=== PATIENT | male | born 1995 | race Caucasian/White ===

== ENCOUNTER 2018-09-11 23:19 | Emergency (ER) | END 2018-09-12 01:34 | disposition home or self-care (01) ==

== ENCOUNTER 2019-02-23 14:36 | Emergency (ER) | payer SELFPAY ==
[~2019-02-23] VITALS: Ht 170.2 cm; Wt 94.8 kg
[~2019-02-23 14:36] MED LIST: IBUP-1542 PO; MUPI22OI2 TOP; NAPR-985 PO; NPH10OT LEFT EAR
[2019-02-23 14:45] VITALS: BP 151/74; PULSE 89; RESP 18; Ht 170.2 cm; Wt 94.8 kg
--- NOTE | 2019-02-23 16:31 | ERD ---
ER Documentation Chief Complaint Chief Complaint right great toe ingrown nail HPI 23-year-old male, previously healthy, presents the emergency department, complaining of right great toenail erythema and tenderness over the medial aspect for 1 week. The patient denies fever, no chills, no history of previous surgeries. ROS All systems reviewed and are negative except as per history of present illness. Medications Home Meds Active Scripts Ibuprofen* (Motrin*) 400 Mg Tab, 400 MG PO Q6H PRN for PAIN AND OR ELEVATED TEMP, #20 TAB Prov:VENITA SIMMONS MD 02/23/19 Cephalexin* (Keflex*) 500 Mg Capsule, 500 MG PO BID for 7 Days, CAP Prov:VENITA SIMMONS MD 02/23/19 Sulfamethoxazole/Trimethoprim* (Bactrim Ds* Tablet) 1 Each Tablet, 1 TAB PO BID, #14 TAB Prov:VENITA SIMMONS MD 02/23/19 Naproxen* (Naprosyn*) 500 Mg Tablet, 500 MG PO BID PRN for PAIN AND/OR INFLAMMATION, #30 TAB Prov:OLIVA SAHNI PA-C 09/12/18 Mupirocin* (Bactroban*) 2% -22 Gram Oint...g., 1 APPLIC TOP BID for 7 Days, EA Prov:OLIVA SAHNI PA-C 09/12/18 Neomycin/Polymyxin/Hydrocort* (Cortisporin* Otic) 10 Ml Susp, 4 DROP LEFT EAR QID for 7 Days, EA Prov:DINESH LOPES MD 10/22/16 Ibuprofen* (Motrin*) 600 Mg Tab, 600 MG PO Q6, #15 TAB Prov:DINESH LOPES MD 10/22/16 Allergies Allergies: Coded Allergies: No Known Allergy (Unverified , 09/11/18) PMhx/Soc Medical and Surgical Hx: pt denies Medical Hx, pt denies Surgical Hx Hx Alcohol Use: Yes (weekly) Hx Substance Use: No Hx Tobacco Use: Yes (2 CIGS/WEEK) Smoking Status: Never smoker FmHx Family History: diabetes (Mother); No coronary disease Physical Exam Vitals Vital Signs Date Temp Pulse Resp B/P (MAP) Pulse Ox O2 O2 Flow FiO2 Time Delivery Rate 02/23/19 98.1 89 18 151/74 100 14:45 (99) Physical Exam Const: No acute distress Head: Atraumatic Eyes: Normal Conjunctiva ENT: Normal External Ears, Nose and Mouth. Neck: Full range of motion. No meningismus. Resp: Clear to auscultation bilaterally Cardio: Regular rate and rhythm, no murmurs Abd: Soft, non tender, non distended. Normal bowel sounds Skin: No petechiae or rashes Back: No midline or flank tenderness Ext: Right ingrown toenail: Tenderness and erythema over the medial fold, distal neurovascular exam intact, no cyanosis, or edema Neur: Awake and alert Psych: Normal Mood and Affect Procedures/MDM Differential diagnoses include paronychia, cellulitis, diabetic ulcer, osteomyelitis. Low suspicion for acute or chronic systemic process. Clinical presentation consistent most likely with right ingrown toenail, treatment options and alternatives were discussed with the patient who decided to go for conservative management with antibiotics p.o. and follow-up with his primary doctor. Some side effects of prescribed medications (headache, rash, nausea, vomiting, diarrhea, drowsiness, habituation, bleeding, hypertension, interactions with other medications) were reviewed. If the symptoms get worse return to the Emergency Department immediately. Instructions explained and given directly by me to the patient with acknowledgment and demonstrated understanding. Disclaimer: Inadvertent spelling and grammatical errors are likely due to EHR/dictation software use and do not reflect on the overall quality of patient care. Also, please note that the electronic time recorded on this note does not necessarily reflect the actual time of the patient encounter. Departure Diagnosis: Primary Impression: Ingrowing nail, right great toe Condition: Stable Additional Instructions: Thank you very much for allowing us to participate in your care. Your health and safety is our top priority at [facility]. The evaluation in the emergency department has been done to rule out an acute emergency, therefore, chronic conditions like malignancy or other diseases have not been evaluated; therefore, you need to follow up with a primary care provider in the next 48h. If symptoms persist, worsen or new symptoms develop, then patient should return to the ED immediately. Call your primary care doctor TOMORROW for an appointment during the next 2-4 days and bring all the information provided. Have prescriptions filled and follow precisely the directions on the label. If the symptoms get worse and your provider is unavailable, return to the Emergency Department immediately. VENITA SIMMONS MD February 23, 2019 16:31
[2019-02-23] MEDS ORDERED: SULF1TAB31 PO (16:33)
[2019-02-23] MEDS ORDERED: IBUP-1561 PO (16:33)
[2019-02-23] MEDS ORDERED: CEPH-443 PO (16:33)
== END 2019-02-23 16:44 | disposition home or self-care (01) ==
LOC: FTE 14:36
DX: L60.0 Ingrowing nail (principal); Z87.891 Personal history of nicotine dependence
CPT/HCPCS: 99283

== ENCOUNTER 2019-03-05 09:52 | Emergency (ER) | payer SELFPAY ==
[~2019-03-05] VITALS: Wt 89.0 kg
[~2019-03-05 09:52] MED LIST changes: +CEPH-443 PO; +IBUP-1561 PO; +SULF1TAB31 PO
[2019-03-05 09:54] VITALS: BP 144/62; PULSE 64; RESP 18
[2019-03-05] MEDS ORDERED: LIDOCAINE 1% (MPF) 5 ML VIAL INJ ONE (10:30)
[2019-03-05] MEDS ORDERED: BACITRACIN/POLYMYXIN 28.35 GM OINT TOP ONE (11:30)
--- NOTE | 2019-03-05 11:41 | ERD ---
ER Documentation Chief Complaint Chief Complaint RIGHT BIG TOE INGROWN TOE NAIL HPI 23-year-old male presenting with ingrown toenail to the right great toe. Patient states that started 7 or 8 days ago and was seen in the ER however was written antibiotics that did not resolve his problem. He denies any fevers. Denies other medical problems. NKDA. Surgical history denies. Social history denies ROS All systems reviewed and are negative except as per history of present illness. Medications Home Meds Active Scripts Ibuprofen* (Motrin*) 400 Mg Tab, 400 MG PO Q6H PRN for PAIN AND OR ELEVATED TEMP, #20 TAB Prov:VENITA SIMMONS MD 02/23/19 Cephalexin* (Keflex*) 500 Mg Capsule, 500 MG PO BID for 7 Days, CAP Prov:VENITA SIMMONS MD 02/23/19 Sulfamethoxazole/Trimethoprim* (Bactrim Ds* Tablet) 1 Each Tablet, 1 TAB PO BID, #14 TAB Prov:VENITA SIMMONS MD 02/23/19 Naproxen* (Naprosyn*) 500 Mg Tablet, 500 MG PO BID PRN for PAIN AND/OR INFLAMM ATION, #30 TAB Prov:OLIVA SAHNI PA-C 09/12/18 Mupirocin* (Bactroban*) 2% -22 Gram Oint...g., 1 APPLIC TOP BID for 7 Days, EA Prov:OLIVA SAHNI PA-C 09/12/18 Neomycin/Polymyxin/Hydrocort* (Cortisporin* Otic) 10 Ml Susp, 4 DROP LEFT EAR QID for 7 Days, EA Prov:DINESH LOPES MD 10/22/16 Ibuprofen* (Motrin*) 600 Mg Tab, 600 MG PO Q6, #15 TAB Prov:DINESH LOPES MD 10/22/16 Allergies Allergies: Coded Allergies: No Known Allergy (Unverified , 09/11/18) PMhx/Soc Medical and Surgical Hx: pt denies Medical Hx, pt denies Surgical Hx Hx Alcohol Use: Yes (weekly) Hx Substance Use: No Hx Tobacco Use: Yes (2 CIGS/WEEK) Smoking Status: Light tobacco smoker FmHx Family History: No diabetes, No coronary disease, No other Physical Exam Vitals Vital Signs Date Temp Pulse Resp B/P (MAP) Pulse Ox O2 O2 Flow FiO2 Time Delivery Rate 03/05/19 98.1 64 18 144/62 99 09:54 (89) Physical Exam GENERAL: The patient is well-appearing, well-nourished, in no acute distress CHEST: Clear to auscultation bilaterally. There are no rales, wheezes or rhonchi. HEART: Regular rate and rhythm. No murmurs, clicks, rubs or gallops. No S3 or S4. EXTREMITIES: Equal pulses bilaterally. There is no peripheral clubbing, cyanosis or edema. No focal swelling or erythema. Full range of motion. Grossly neurovascularly intact. NEUROLOGIC: Alert and oriented. Cranial nerves II through XII intact. Motor strength in all 4 extremities with 5 out of 5 strength. Sensation grossly intact. Normal speech and gait. SKIN: Erythema and swelling noted to the right great toe. Results 24 hrs Current Medications Medications Dose Sig/Betty Start Time Status Last (Trade) Ordered Route PRN Stop Time Admin Dose Reason Admin Lidocaine 5 ml ONCE ONCE 03/05/19 DC (Xylocaine INJ 10:30 1% (Mpf)) 03/05/19 10:31 Bacitracin/ 1 applic ONCE ONCE 03/05/19 DC 03/05/19 Polymyxin B TOP 11:30 11:25 Sulfate 03/05/19 11:31 (Polysporin Oint) Procedures/MDM ER course: Plain lidocaine injected into the right great toe. Digital block performed and was adequately anesthetized. Lateral portion of the right great toenail was removed without complication. Bandage was applied. MDM: 23-year-old male presenting with ingrown toenail. I have low suspicion for deep tracking infection. Patient's ingrown toenail was removed without complication. Patient is told to soak with warm water and apply antibiotic ointment. Patient is told symptoms change or worsen to return immediately to the ER. All questions answered at discharge Departure Diagnosis: Primary Impression: Ingrowing nail, right great toe Condition: Stable Patient Instructions: Ingrown Toenail, Excised Referrals: [facility] YOU HAVE RECEIVED A MEDICAL SCREENING EXAM AND THE RESULTS INDICATE THAT YOU DO NOT HAVE A CONDITION THAT REQUIRES URGENT TREATMENT IN THE EMERGENCY DEPARTMENT. FURTHER EVALUATION AND TREATMENT OF YOUR CONDITION CAN WAIT UNTIL YOU ARE SEEN IN YOUR DOCTORS OFFICE WITHIN THE NEXT 1-2 DAYS. IT IS YOUR RESPONSIBILITY TO MAKE AN APPOINTMENT FOR FOLOW-UP CARE. IF YOU HAVE A PRIMARY DOCTOR --you should call your primary doctor and schedule an appointment IF YOU DO NOT HAVE A PRIMARY DOCTOR YOU CAN CALL OUR PHYSICIAN REFERRAL HOTLINE AT IF YOU CAN NOT AFFORD TO SEE A PHYSICIAN YOU CAN CHOSE FROM THE FOLLOWING [facility] [id number] [facility] [address] [facility] [facility] [address] [facility] [address] [facility] [facility] [address] [facility]. [facility]. [address] Additional Instructions: FOLLOW UP WITH YOUR PRIMARY CARE PHYSICIAN TOMORROW.Return to this facility if you are not improving as expected. ARVIND GRIDER PA-C March 05, 2019 11:41
== END 2019-03-05 11:28 | disposition home or self-care (01) ==
LOC: FTE 09:52
DX: L60.0 Ingrowing nail (principal); F17.210 Nicotine dependence, cigarettes, uncomplicated